=== PATIENT | female | born 1975 | race Caucasian/White ===

== ENCOUNTER 2019-06-04 21:29 | Emergency (ER) | payer SELFPAY ==
[2019-06-04 22:04] VITALS: BP 130/87; PULSE 82; RESP 16; TEMP 36.8; O2SAT 92; BMI 32.3
[2019-06-04 22:28] VITALS: BP 131/81; PULSE 73; RESP 18; TEMP 36.8; O2SAT 96
--- NOTE | 2019-06-04 22:35 | W.ED.EXTPRO ---
HPI - Extremity Problem General: Chief complaint: Extremity Injury, Lower Stated complaint: left leg pain Time Seen by Provider: 06/04/19 22:23 History of Present Illness: HPI Narrative: Patient is a 43-year-old female comes in to the ED with left knee left hip pain. Patient states that she was at her house tonight and twisted her left leg while turning and thought she heard a pop. She says the pain now is in the left hip and left knee. She rates the pain at 1010 and his trouble walking on knee. Denies any Fever, chest pain, shortness of breath, abdominal pain, dysuria, hematuria, bowel symptoms. Review of Systems General: Reports: 10 or more systems reviewed and unremarkable except in HPI and below PFSH ED PFSH: Statuses (acute, chronic, etc) shown below reflect problem list status as previously entered and may not be historically accurate Social History Smoking and tobacco status: current every day smoker Physical Exam Const: COMMON NORMALS: oriented x3 HENMT: COMMON NORMALS: normocephalic HEAD & SCALP: normocephalic MOUTH: oral and palatal mucosa normal THROAT: posterior oropharynx normal and uvula midline Neck/C-Spine: COMMON NORMALS: supple GENERAL: Yes normal visual inspection Resp: COMMON NORMALS: normal respiratory effort, no retractions, no use of accessory muscles and clear to auscultation bilaterally AUSCULTATION: clear to auscultation bilaterally Cardio: COMMON NORMALS: regular rate, regular rhythm, S1 normal heart sound, S2 normal heart sound, no gallops, no clicks, no murmurs and peripheral pulses 2+ throughout RATE: regular rate RHYTHM: regular rhythm HEART SOUNDS: S1 normal and S2 normal PERIPHERAL PULSES: pulses 2+ throughout GI: COMMON NORMALS: normal to inspection, nondistended, normoactive bowel sounds, soft to palpation, non-tender and no masses PALPATION: Yes soft : COMMON NORMALS: Yes no CVA tenderness BLADDER/KIDNEY EXAM: Yes no CVA tenderness Back/Pelvis: COMMON NORMALS: no CVA tenderness Extremity: LEFT LOWER EXTREMITY: Yes hip joint Left hip: Yes inspection (normal, no erythema, echymossis or swelling.), Yes palpation (tender upon palp of lateral side of hip joint), Yes ROM (limited due to pain.) and Yes neurovascular exam (intact) and Yes knee joint Left knee: Yes inspection (normal and no swelling.), Yes palpation (tender on lateral and medial side.), Yes ROM (limited due to pain) and Yes neurovascular exam (intact) Neuro: COMMON NORMALS: oriented x3 and moves all extremities SENSORY EXAM: Yes extremities (intact) Course ED course: I discussed using IM Toradol to help with left leg pain and patient stated she had taken it before that she said it worked and would like to get Toradol injection today. The nurse went in to give patient the IM Toradol and she refused it. Vital Signs: Vital signs: Vital Signs Temperature 98.2 F 06/05/19 00:01 Pulse Rate 102 H 06/05/19 00:01 Respiratory Rate 18 06/05/19 00:01 Blood Pressure 148/92 06/05/19 00:01 Pulse Oximetry 96 06/05/19 00:01 MDM - Extremity (Nontraumatic) Lab Data: Attestation: I reviewed the patient's lab results. Labs: Lab Results 06/04/19 Range/Units 22:10 Urine Color Straw (Yellow) Urine Appearance Clear (CLEAR) Urine pH 7 (5-7) Ur Specific Gravit y 1.005 (1.005-1.030) Urine Protein Neg (Negative) Urine Glucose (UA) Norm (Normal) Urine Ketones Negative (Negative) Urine Occult Blood 2+ H (Negative) Urine Nitrate Positive H (Negative) Urine Bilirubin Neg (NEGATIVE) Urine Urobilinogen Norm (Negative) mg/dL Ur Leukocyte Ashly ase Negative (Negative) Urine RBC 5-10 H (0-2) /hpf Urine WBC 5-10 H (0-5) /hpf Ur Squamous Epith Cells 0-4 H (0-5) Urine Bacteria 3+ H (NONE) Imaging Data^: Xray Ortho: Attestation: I personally reviewed and interpreted this imaging study as follows: My impression: Knee x-ray and left hip x-ray performed. No acute fracture seen. Pending final radiologist report. Discharge Plan Discharge Patient Disposition: Home, Self-Care Clinical Impression: Leg pain, left UTI (urinary tract infection) Qualifiers: Urinary tract infection type: acute cystitis Hematuria presence: with hematuria Qualified Code(s): N30.01 - Acute cystitis with hematuria Condition: Stable Prescriptions: New Bactrim DS 800-160 mg tablet 1 tab PO DAILY 7 Days Qty: 7 RF: 0 naproxen 375 mg tablet 375 mg PO BID PRN (Reason: pain) Qty: 30 RF: 0 No Action No Known Home Medications RF: 0 Discharge Orders: Discharge Order (Routine); Ordered 06/04/19 Ordered By: Joo Dhillon Referrals: [facility] [Other] Discharge Diet: Regular Discharge Activity: Increase activity as tolerated Patient Instructions: Urinary Tract Infection in Women (ED) Activity Restrictions/Additional Instructions: Follow-up with your PCP at your scheduled appointment on . Take full course of antibiotic as prescribed for UTI. Drink plenty of fluids. Take naproxen for leg pain is also rest and ice leg to help with symptoms. Discharge Date/Time: 06/04/19 23:42 Coding Level of Care Code ED School Speech Language Pathologist for Yadi Amador
--- NOTE | 2019-06-04 22:36 | XR_ITS ---
WS: [id number] KNEE LEFT TECHNIQUE: 2 views of the left knee CLINICAL INFORMATION: pain COMPARISON: None. FINDINGS: Left knee is normal in appearance. No evidence of acute fracture dislocation. No significant effusion . Patella is normal. Benign soft tissue calcification. XR/XR knee LT 1-2V [id number] IMPRESSION: Normal left knee.
--- NOTE | 2019-06-04 22:36 | XR_ITS ---
WS: [id number] HIP WITH PELVIS LEFT TECHNIQUE: 3 views of the left hip with pelvis CLINICAL INFORMATION: pain COMPARISON: None. FINDINGS: Both hips are normal in appearance. No acute fractures. Normal pubic rami. Pelvic phleboliths. XR/XR hip LT 2-3V wo/w pel* [id number] IMPRESSION: Normal left hip
[2019-06-04 23:01] LABS: Add Urine Microscopic? YES; Bilirubin Urine Neg (NEGATIVE); Blood Urine 2+ (Negative); Glucose Urine UA Norm (Normal); Ketones Urine Negative (Negative); Leukocyte Esterase Urine Negative (Negative); Nitrate Urine Positive (Negative); Protein Urine Neg (Negative); Specific Gravity, Urine 1.005 (1.005-1.030); Urine Appearance Clear (CLEAR); Urine Color Straw (Yellow); Urobilinogen Urine Norm (Negative); pH Urine 7 (5-7)
[2019-06-04 23:07] LABS: Add Urine Culture? Yes; Bacteria Urine 3+; Squamous Epithelial Cell Urine 0-4 (0-5)
[2019-06-04 23:43] VITALS: BP 139/82; PULSE 98; RESP 16; TEMP 36.7; O2SAT 95
[2019-06-05 00:01] VITALS: BP 148/92; PULSE 102; RESP 18; TEMP 36.8; O2SAT 96
== END 2019-06-04 23:42 | disposition home or self-care (01) ==
PROVIDERS: Emergency Medicine; Emergency Provider Physician Assistant
DX: M25.562 Pain in left knee (principal); M25.552 Pain in left hip; N30.01 Acute cystitis with hematuria; F17.200 Nicotine dependence, unspecified, uncomplicated
CPT/HCPCS: 73501; 73502; 73560; 81001; 87077; 87086; 87186; 99281; 99283

== ENCOUNTER 2019-10-03 18:48 | Emergency (ER) | payer MEDICAID, SELFPAY ==
[2019-10-03 18:55] VITALS: BP 135/81; PULSE 106; RESP 16; TEMP 36.5; O2SAT 95; BMI 32.3
--- NOTE | 2019-10-03 19:04 | W.ED.WOUNDLC ---
HPI - Wound/Laceration General: Chief Complaint: Wound/Laceration Stated Complaint: R HAND LAC Time Seen by Provider: 10/03/19 19:04 History of Present Illness: HPI narrative: Patient is a 43-year-old female comes to the ED with a laceration on right palm. Injury occurred just prior to arrival. Patient states she was peeling potatoes and she excellently cut her right palm. After injury patient cleaned wound with hydrogen peroxide and came to the ED for reevaluation. Patient is unsure of last tetanus shot. Associated symptoms: Denies chills, fever(s), nausea or vomiting Review of Systems Const: Denies: fever(s), chills or fatigue Eyes: Denies: change in vision or eye discomfort ENMT: Denies: throat pain, odynophagia, nasal discharge or nasal congestion Card: Denies: chest pain, palpitations, edema, swelling of feet/ankles, dyspnea on exertion or orthopnea Resp: Denies: dyspnea, productive cough or non-productive cough GI: Denies: abdominal pain, nausea, vomiting, diarrhea, constipation or hematochezia : Denies: flank pain, dysuria or hematuria Musc: Denies: neck pain, back pain or extremity swelling Skin/Breast: Reports: new lesions (Laceration on right palm.); Denies: rash Neuro: Denies: headache(s), numbness in extremities or weakness in extremities PFS ED PFSH: Social History Smoking and tobacco status: current some day smoker Current gender identity: Female Physical Exam Const: COMMON NORMALS: no acute distress, patient oriented x3 and alert GENERAL APPEARANCE: cooperative and comfortable HENMT: COMMON NORMALS: normocephalic HEAD & SCALP: normocephalic MOUTH: Normal oral and palatal mucosa present THROAT: posterior oropharynx normal and uvula midline Neck/C-Spine: COMMON NORMALS: supple GENERAL: Yes normal visual inspection Resp: COMMON NORMALS: normal respiratory effort, No retractions, No use of accessory muscles and clear to auscultation bilaterally AUSCULTATION: clear to auscultation bilaterally Cardio: COMMON NORMALS: regular rate, regular rhythm, S1 normal heart sound present, S2 normal heart sound present, No gallops present (Cardio), No clicks present (Cardio), No murmurs present (Cardio) and Peripheral pulses 2+ throughout RATE: regular rate RHYTHM: regular rhythm HEART SOUNDS: S1 normal heart sound present and S2 normal heart sound present PERIPHERAL PULSES: Peripheral pulses 2+ throughout GI: COMMON NORMALS: Normal to inspection, nondistended, normoactive bowel sounds present, Soft to palpation, non-tender and no masses PALPATION: Yes Soft to palpation : COMMON NORMALS: Yes no CVA tenderness BLADDER/KIDNEY EXAM: Yes no CVA tenderness Back/Pelvis: COMMON NORMALS: no CVA tenderness Extremity: RIGHT UPPER EXTREMITY: Yes hand & digits Right hand and digits: Yes inspection (Small superficial 1 cm laceration on palm. Not actively bleeding. Some tenderness when touched.) Neuro: COMMON NORMALS: patient oriented x3 and moves all extremities SENSORIUM/ORIENTATION: Yes alert Skin: GENERAL SKIN EXAM: dry skin TRAUMA: laceration (Details of hand laceration in the extremity section of physical exam.) Procedures Laceration Laceration 1: Site: hand Side (If applicable): right Size (cm): 1 Description: linear and clean Depth: simple, single layer Pre-repair: irrigated extensively (normal saline and cleaned with alcohol wipe.) Skin layer closed with: other (dermabond) Technique: other (dermabond) Course Vital Signs: Vital signs: Vital Signs Temperature 97.7 F 10/03/19 18:55 Pulse Rate 94 10/03/19 19:28 Respiratory Rate 16 10/03/19 19:28 Blood Pressure 130/89 10/03/19 19:28 Pulse Oximetry 96 10/03/19 19:28 MDM - Wound/Laceration MDM Narrative: Medical decision making narrative: Patient is a 43-year-old female comes to the ED with small 1 cm superficial linear laceration on the right palm. Wound was irrigated extensively with normal saline and cleaned with alcohol wipe. Laceration was then closed using Dermabond and bandage was placed over laceration. Patient was given an updated tetanus shot and a dose of cephalexin while here in the ED. Patient was given a prescription for cephalexin and told to follow-up with her PCP in 7 to 10 days for reevaluation. I told patient about signs of infection to look for and to re-bandage and clean laceration site daily after the first 24 hours. Patient understood and agreed with plan. Discharge Plan Discharge Patient Disposition: Home, Self-Care Clinical Impression: Laceration Condition: Stable Prescriptions: New cephalexin 500 mg capsule 500 mg PO BID 5 Days Qty: 10 RF: 0 No Action aspirin [Adult Low Dose Aspirin] 81 mg tablet,delayed release (DR/EC) 81 mg PO DAILY RF: 0 gabapentin [Neurontin] 100 mg capsule 100 mg PO TID MDD 1200 Qty: 90 RF: 0 folic acid 1 mg tablet 1 mg PO DAILY Qty: 30 RF: 2 Cerefolin 6-5-50-1 mg tablet 1 tab PO BID Qty: 60 RF: 2 ergocalciferol (vitamin D2) [Drisdol] 1,250 mcg (50,000 unit) capsule 1,250 mcg PO .weekly Qty: 4 RF: 2 naproxen 375 mg tablet 375 mg PO BID PRN (Reason: pain) Qty: 30 RF: 0 Discharge Orders: Discharge Order (Routine); Ordered 10/03/19 Ordered By: Joo Dhillon Discharge Diet: Regular Discharge Activity: Limit activity as instructed Patient Instructions: Laceration (ED) Activity Restrictions/Additional Instructions: For the next 24 hours keep laceration site dry. After that you can re-bandage and clean daily. Take full course of antibiotic as prescribed. Schedule follow-up appointment with your PCP in 7 to 10 days for reevaluation. Watch for signs of infection such as increased tenderness, redness, warmth and drainage around laceration site. If you notice any of the signs you can return to the ED for reevaluation. Coding Level of Care Code ED Motorcycle Engine Assembler for Yadi Fwstone Exam Comprehensive
--- NOTE | 2019-10-03 19:05 | PC.NURSE ---
During triage patient had pressure dressing to right hand, no bleeding noted at this time.
[2019-10-03 19:28] VITALS: BP 130/89; PULSE 94; RESP 16; O2SAT 96
[2019-10-03] MEDS: cephALEXin 500 mg Capsule PO (19:35)
[2019-10-03] MEDS: tetanus-dipt-pertussis 0.5 mL SDV IM (19:35)
== END 2019-10-03 19:56 | disposition home or self-care (01) ==
PROVIDERS: Emergency Provider Physician Assistant
DX: S61.411A Laceration without foreign body of right hand, initial encounter (principal); W26.0XXA Contact with knife, initial encounter; F17.210 Nicotine dependence, cigarettes, uncomplicated; Z23 Encounter for immunization
CPT/HCPCS: 12001; 12345; 90471; 90715; 99282; 99283

== ENCOUNTER → 2020-01-28 08:29 | Outpatient (BNVA) | payer MEDICAID, SELFPAY | PROVIDERS: Visit Provider Counselor Mental Health | DX: F43.12 Post-traumatic stress disorder, chronic (principal); F41.1 Generalized anxiety disorder | CPT/HCPCS: 90832 ==

== ENCOUNTER → 2020-02-04 15:00 | Outpatient (BNVA) | payer MEDICAID, SELFPAY | PROVIDERS: Visit Provider Counselor Mental Health | DX: F41.1 Generalized anxiety disorder (principal); F43.12 Post-traumatic stress disorder, chronic | CPT/HCPCS: 90834 ==

== ENCOUNTER → 2020-03-11 08:02 | Outpatient (BNVA) | payer MEDICAID, SELFPAY | PROVIDERS: Visit Provider Counselor Mental Health | DX: F43.12 Post-traumatic stress disorder, chronic (principal); F41.1 Generalized anxiety disorder | CPT/HCPCS: 90834 ==

== ENCOUNTER → 2020-03-17 08:29 | Outpatient (BNVA) | payer MEDICAID, SELFPAY | PROVIDERS: Visit Provider Counselor Mental Health | DX: F43.12 Post-traumatic stress disorder, chronic (principal); F41.1 Generalized anxiety disorder | CPT/HCPCS: 90832 ==

== ENCOUNTER → 2020-03-24 07:58 | Outpatient (BNVA) | payer MEDICAID, SELFPAY | PROVIDERS: Visit Provider Counselor Mental Health | DX: F43.12 Post-traumatic stress disorder, chronic (principal); F41.1 Generalized anxiety disorder | CPT/HCPCS: 90834 ==

== ENCOUNTER → 2020-04-08 08:51 | Outpatient (BNVA) | payer MEDICAID, SELFPAY | PROVIDERS: Visit Provider Counselor Mental Health | DX: F43.12 Post-traumatic stress disorder, chronic (principal) | CPT/HCPCS: 90834 ==

== ENCOUNTER → 2020-04-14 08:34 | Outpatient (BNVA) | payer MEDICAID, SELFPAY | PROVIDERS: Visit Provider Counselor Mental Health | DX: F43.12 Post-traumatic stress disorder, chronic (principal); F41.1 Generalized anxiety disorder | CPT/HCPCS: 90834 ==

== ENCOUNTER → 2020-05-13 11:12 | Outpatient (BNVA) | payer OTHER, SELFPAY | PROVIDERS: Visit Provider Psychiatry & Neurology Psychiatry | DX: F41.1 Generalized anxiety disorder (principal) | CPT/HCPCS: 80061; 83036 ==

== ENCOUNTER → 2020-05-15 11:10 | Outpatient (BNVA) | payer MEDICAID, SELFPAY | PROVIDERS: Visit Provider Family Medicine | DX: J44.9 Chronic obstructive pulmonary disease, unspecified (principal); I10 Essential (primary) hypertension; Z13.6 Encounter for screening for cardiovascular disorders | CPT/HCPCS: 80053; 80061; 82043; 85025 ==

== ENCOUNTER → 2020-05-18 09:07 | Outpatient (BNVA) | payer MEDICAID, SELFPAY | PROVIDERS: Visit Provider Counselor Mental Health | DX: F43.12 Post-traumatic stress disorder, chronic (principal); F33.1 Major depressive disorder, recurrent, moderate | CPT/HCPCS: 90834 ==

== ENCOUNTER → 2020-05-25 09:26 | Outpatient (BNVA) | payer MEDICAID, SELFPAY ==
[2020-05-19 15:05] VITALS: BP 108/74; BMI 34.1
== END ==
PROVIDERS: Visit Provider Counselor Mental Health
DX: F43.12 Post-traumatic stress disorder, chronic (principal); F33.1 Major depressive disorder, recurrent, moderate; F41.1 Generalized anxiety disorder
CPT/HCPCS: 90834

== ENCOUNTER → 2020-06-02 08:30 | Outpatient (BNVA) | payer MEDICAID, SELFPAY ==
[2020-05-19 15:05] VITALS: BP 108/74; BMI 34.1
== END ==
PROVIDERS: Visit Provider Counselor Mental Health
DX: F43.12 Post-traumatic stress disorder, chronic (principal); F33.1 Major depressive disorder, recurrent, moderate
CPT/HCPCS: 90834

== ENCOUNTER → 2020-06-09 07:55 | Outpatient (BNVA) | payer MEDICAID, SELFPAY ==
[2020-05-19 15:05] VITALS: BP 108/74; BMI 34.1
== END ==
PROVIDERS: Visit Provider Counselor Mental Health
DX: F43.12 Post-traumatic stress disorder, chronic (principal); F33.1 Major depressive disorder, recurrent, moderate; F41.1 Generalized anxiety disorder
CPT/HCPCS: 90834

== ENCOUNTER → 2020-06-16 08:19 | Outpatient (BNVA) | payer MEDICAID, SELFPAY ==
[2020-05-19 15:05] VITALS: BP 108/74; BMI 34.1
== END ==
PROVIDERS: Visit Provider Counselor Mental Health
DX: F43.12 Post-traumatic stress disorder, chronic (principal)
CPT/HCPCS: 90834

== ENCOUNTER → 2020-06-26 08:57 | Outpatient (BNVA) | payer MEDICAID, SELFPAY ==
[2020-05-19 15:05] VITALS: BP 108/74; BMI 34.1
== END ==
PROVIDERS: Visit Provider Counselor Mental Health
DX: F43.12 Post-traumatic stress disorder, chronic (principal)
CPT/HCPCS: 90834

== ENCOUNTER → 2020-06-30 08:06 | Outpatient (BNVA) | payer MEDICAID, SELFPAY ==
[2020-05-19 15:05] VITALS: BP 108/74; BMI 34.1
== END ==
PROVIDERS: Visit Provider Counselor Mental Health
DX: F43.12 Post-traumatic stress disorder, chronic (principal); F41.1 Generalized anxiety disorder; F33.1 Major depressive disorder, recurrent, moderate; F10.11 Alcohol abuse, in remission
CPT/HCPCS: 90834

== ENCOUNTER → 2020-07-07 15:46 | Outpatient (BNVA) | payer MEDICAID, SELFPAY ==
[2020-05-19 15:05] VITALS: BP 108/74; BMI 34.1
== END ==
PROVIDERS: Visit Provider Counselor Mental Health
DX: F43.12 Post-traumatic stress disorder, chronic (principal); F41.1 Generalized anxiety disorder; F33.1 Major depressive disorder, recurrent, moderate; F10.11 Alcohol abuse, in remission
CPT/HCPCS: 90834

== ENCOUNTER → 2020-07-22 14:35 | Outpatient (BNVA) | payer MEDICAID, SELFPAY ==
[2020-05-19 15:05] VITALS: BP 108/74; BMI 34.1
== END ==
PROVIDERS: Visit Provider Counselor Mental Health
DX: F43.12 Post-traumatic stress disorder, chronic (principal); F41.1 Generalized anxiety disorder; F33.1 Major depressive disorder, recurrent, moderate; F10.11 Alcohol abuse, in remission
CPT/HCPCS: 90834

== ENCOUNTER → 2020-08-06 13:34 | Outpatient (BNVA) | payer MEDICAID, SELFPAY ==
[2020-05-19 15:05] VITALS: BP 108/74; BMI 34.1
== END ==
PROVIDERS: Visit Provider Counselor Mental Health
DX: F43.12 Post-traumatic stress disorder, chronic (principal); F41.1 Generalized anxiety disorder; F33.1 Major depressive disorder, recurrent, moderate; F10.11 Alcohol abuse, in remission
CPT/HCPCS: 90834

== ENCOUNTER → 2020-08-17 13:39 | Outpatient (BNVA) | payer MEDICAID, SELFPAY ==
[2020-05-19 15:05] VITALS: BP 108/74; BMI 34.1
== END ==
PROVIDERS: Visit Provider Counselor Mental Health
DX: F43.12 Post-traumatic stress disorder, chronic (principal); F41.1 Generalized anxiety disorder; F33.1 Major depressive disorder, recurrent, moderate
CPT/HCPCS: 90834

== ENCOUNTER → 2020-08-31 12:45 | Outpatient (BNVA) | payer MEDICAID, SELFPAY ==
[2020-05-19 15:05] VITALS: BP 108/74; BMI 34.1
== END ==
PROVIDERS: Visit Provider Psychiatry & Neurology Psychiatry
DX: F32.9 Major depressive disorder, single episode, unspecified (principal); F41.9 Anxiety disorder, unspecified
CPT/HCPCS: 99214

== ENCOUNTER → 2020-09-03 07:36 | Outpatient (BNVA) | payer MEDICAID, SELFPAY ==
[2020-05-19 15:05] VITALS: BP 108/74; BMI 34.1
== END ==
PROVIDERS: Visit Provider Counselor Mental Health
DX: F43.12 Post-traumatic stress disorder, chronic (principal); F41.1 Generalized anxiety disorder; F33.1 Major depressive disorder, recurrent, moderate; F10.11 Alcohol abuse, in remission
CPT/HCPCS: 90834

== ENCOUNTER → 2020-09-16 07:59 | Outpatient (BNVA) | payer MEDICAID, SELFPAY ==
[2020-05-19 15:05] VITALS: BP 108/74; BMI 34.1
== END ==
PROVIDERS: Visit Provider Counselor Mental Health
DX: F43.12 Post-traumatic stress disorder, chronic (principal); F41.1 Generalized anxiety disorder; F33.1 Major depressive disorder, recurrent, moderate; F10.11 Alcohol abuse, in remission
CPT/HCPCS: 90834

== ENCOUNTER → 2020-09-23 09:34 | Outpatient (BNVA) | payer MEDICAID, SELFPAY ==
[2020-05-19 15:05] VITALS: BP 108/74; BMI 34.1
== END ==
PROVIDERS: Visit Provider Counselor Mental Health
DX: F43.12 Post-traumatic stress disorder, chronic (principal); F41.1 Generalized anxiety disorder; F33.1 Major depressive disorder, recurrent, moderate; F10.11 Alcohol abuse, in remission; F32.9 Major depressive disorder, single episode, unspecified
CPT/HCPCS: 90834

== ENCOUNTER → 2020-10-08 08:33 | Outpatient (BNVA) | payer MEDICAID, SELFPAY ==
[2020-05-19 15:05] VITALS: BP 108/74; BMI 34.1
== END ==
PROVIDERS: Visit Provider Counselor Mental Health
DX: F43.12 Post-traumatic stress disorder, chronic (principal); F41.1 Generalized anxiety disorder; F33.1 Major depressive disorder, recurrent, moderate
CPT/HCPCS: 90834

== ENCOUNTER → 2020-10-29 14:03 | Outpatient (BNVA) | payer MEDICAID, SELFPAY ==
[2020-05-19 15:05] VITALS: BP 108/74; BMI 34.1
== END ==
PROVIDERS: Visit Provider Psychiatry & Neurology Psychiatry
DX: F32.9 Major depressive disorder, single episode, unspecified (principal); F41.9 Anxiety disorder, unspecified
CPT/HCPCS: 99214

== ENCOUNTER → 2020-11-13 07:54 | Outpatient (BNVA) | payer MEDICAID, SELFPAY ==
[2020-05-19 15:05] VITALS: BP 108/74; BMI 34.1
== END ==
PROVIDERS: Visit Provider Counselor Mental Health
DX: F43.12 Post-traumatic stress disorder, chronic (principal); F41.1 Generalized anxiety disorder; F33.1 Major depressive disorder, recurrent, moderate; F10.11 Alcohol abuse, in remission
CPT/HCPCS: 90834

== ENCOUNTER → 2020-11-20 07:52 | Outpatient (BNVA) | payer MEDICAID, SELFPAY ==
[2020-05-19 15:05] VITALS: BP 108/74; BMI 34.1
== END ==
PROVIDERS: PCP Family Medicine; Visit Provider Counselor Mental Health
DX: F43.12 Post-traumatic stress disorder, chronic (principal); F41.1 Generalized anxiety disorder; F33.1 Major depressive disorder, recurrent, moderate; F10.11 Alcohol abuse, in remission
CPT/HCPCS: 90834

== ENCOUNTER → 2020-12-01 07:32 | Outpatient (BNVA) | payer MEDICAID, SELFPAY ==
[2020-05-19 15:05] VITALS: BP 108/74; BMI 34.1
== END ==
PROVIDERS: PCP Family Medicine; Visit Provider Counselor Mental Health
DX: F32.9 Major depressive disorder, single episode, unspecified (principal); F43.12 Post-traumatic stress disorder, chronic
CPT/HCPCS: 90834

== ENCOUNTER → 2020-12-14 08:12 | Outpatient (BNVA) | payer MEDICAID, SELFPAY ==
[2020-05-19 15:05] VITALS: BP 108/74; BMI 34.1
== END ==
PROVIDERS: PCP Family Medicine; Visit Provider Counselor Mental Health
DX: F43.12 Post-traumatic stress disorder, chronic (principal); F41.9 Anxiety disorder, unspecified; F33.1 Major depressive disorder, recurrent, moderate
CPT/HCPCS: 90834

== ENCOUNTER → 2020-12-25 07:40 | Outpatient (BNVA) | payer MEDICAID, SELFPAY ==
[2020-05-19 15:05] VITALS: BP 108/74; BMI 34.1
== END ==
PROVIDERS: PCP Family Medicine; Visit Provider Counselor Mental Health
DX: F43.12 Post-traumatic stress disorder, chronic (principal); F33.1 Major depressive disorder, recurrent, moderate; F41.1 Generalized anxiety disorder
CPT/HCPCS: 90834

== ENCOUNTER → 2021-01-05 15:16 | Outpatient (BNVA) | payer MEDICAID, SELFPAY ==
[2020-05-19 15:05] VITALS: BP 108/74; BMI 34.1
== END ==
PROVIDERS: Visit Provider Psychiatry & Neurology Psychiatry
DX: F41.9 Anxiety disorder, unspecified (principal); F32.9 Major depressive disorder, single episode, unspecified; Z72.820 Sleep deprivation
CPT/HCPCS: 99214

== ENCOUNTER → 2021-01-07 08:28 | Outpatient (BNVA) | payer MEDICAID, SELFPAY ==
[2020-05-19 15:05] VITALS: BP 108/74; BMI 34.1
== END ==
PROVIDERS: Visit Provider Counselor Mental Health
DX: F43.12 Post-traumatic stress disorder, chronic (principal); F33.1 Major depressive disorder, recurrent, moderate
CPT/HCPCS: 90834

== ENCOUNTER → 2021-01-18 08:32 | Outpatient (BNVA) | payer MEDICAID, SELFPAY ==
[2020-05-19 15:05] VITALS: BP 108/74; BMI 34.1
== END ==
PROVIDERS: Visit Provider Counselor Mental Health
DX: F33.1 Major depressive disorder, recurrent, moderate (principal); F41.1 Generalized anxiety disorder; F43.12 Post-traumatic stress disorder, chronic
CPT/HCPCS: 90834

== ENCOUNTER 2021-01-22 12:41 | Outpatient (CLI) | payer MEDICAID, SELFPAY ==
[2020-05-19 15:05] VITALS: BP 108/74; BMI 34.1
--- NOTE | 2021-01-22 13:30 | MM_ITS ---
WS: [id number] BILATERAL DIGITAL SCREENING MAMMOGRAPHY WITH CAD CLINICAL INFORMATION: mammogram screening HISTORY: Screening mammogram. Left breast pain at the areola. Discharge from left nipple. Inverted ni pples. Red lump near the nipple. COMPARISON: February 05, 2016. TECHNIQUE: Bilateral CC and MLO views. FINDINGS: Scattered fibroglandular densities bilaterally. Bilateral punctate and lucent centered calcifications . Coarse calcifications. Palpable marker left areola. Increased density deep to the areola measuring 1.5 CM. Recommend further evaluation with left breast diagnostic mammography and ultrasound. Associat ed trabecular thickening about the areola appears increased from previous. Right breast is unremarkable. MM/[place] [id number] IMPRESSION: BI-RADS: 0-Incomplete: Need additional imaging evaluation FOLLOW UP: Need Additional Imaging RECOMMEND LEFT BREAST DIAGNOSTIC MAMMOGRAPHY AND ULTRASOUND.
== END 2021-01-22 12:42 | disposition home or self-care (01) ==
LOC: RADSHAW 12:44
PROVIDERS: PCP Family Medicine; Visit Provider Family Medicine
DX: Z12.31 Encounter for screening mammogram for malignant neoplasm of breast (principal)
CPT/HCPCS: 77067

== ENCOUNTER → 2021-02-02 10:13 | Outpatient (BNVA) | payer MEDICAID, SELFPAY ==
[2020-05-19 15:05] VITALS: BP 108/74; BMI 34.1
== END ==
PROVIDERS: PCP Family Medicine; Visit Provider Counselor Mental Health
DX: F43.12 Post-traumatic stress disorder, chronic (principal); F32.9 Major depressive disorder, single episode, unspecified; F41.1 Generalized anxiety disorder
CPT/HCPCS: 90834

== ENCOUNTER → 2021-02-17 13:30 | Outpatient (BNVA) | payer MEDICAID, SELFPAY ==
[2020-05-19 15:05] VITALS: BP 108/74; BMI 34.1
== END ==
PROVIDERS: PCP Family Medicine; Visit Provider Counselor Mental Health
DX: F32.9 Major depressive disorder, single episode, unspecified (principal); F41.9 Anxiety disorder, unspecified; F43.12 Post-traumatic stress disorder, chronic
CPT/HCPCS: 90834

== ENCOUNTER 2021-03-08 14:53 | Outpatient (CLI) | payer MEDICAID, SELFPAY ==
[2020-05-19 15:05] VITALS: BP 108/74; BMI 34.1
--- NOTE | 2021-03-08 14:30 | MM_ITS ---
WS: [id number] LEFT DIGITAL MAMMOGRAPHY WITH CAD CLINICAL INFORMATION: pain in left breast COMPARISON: January 22, 2021 TECHNIQUE: 2 views of the left breast were obtained. FINDINGS: Scattered fibroglandular densities of the left breast. Stable punctate and lucent centered calcificat ions. Increased density at the areola measuring 1.5 cm is stable in appearance. Associated trabecular thickening. Ultrasound left breast is pending. ULTRASOUND BREAST LEFT TECHNIQUE: Ultrasound left breast focused area of concern. CLINICAL INFORMATION: pain in left breast FINDINGS: Ultrasound left breast at the areola at the 9:00 position 1 cm from the nipple. Associated skin thick ening compatible with cellulitis/mastitis. Subcutaneous edema with soft tissue thickening. Small hypo echoic fluid collection measuring 5.4 x 4.9 mm consistent with a small abscess. No drainable fluid co llections. Recommend continued surveillance and antibiotic treatment. Recommend follow-up to [facility] on. MM/[place] [id number] IMPRESSION: BI-RADS: 3-Probably Benign FOLLOW UP: See Report Recommend follow-up left breast infection to resolution. Recommend left breast ultrasound follow-up after treatment in 4-6 weeks.
--- NOTE | 2021-03-08 15:00 | US_ITS ---
WS: [id number] LEFT DIGITAL MAMMOGRAPHY WITH CAD CLINICAL INFORMATION: pain in left breast COMPARISON: January 22, 2021 TECHNIQUE: 2 views of the left breast were obtained. FINDINGS: Scattered fibroglandular densities of the left breast. Stable punctate and lucent centered calcificat ions. Increased density at the areola measuring 1.5 cm is stable in appearance. Associated trabecular thickening. Ultrasound left breast is pending. ULTRASOUND BREAST LEFT TECHNIQUE: Ultrasound left breast focused area of concern. CLINICAL INFORMATION: pain in left breast FINDINGS: Ultrasound left breast at the areola at the 9:00 position 1 cm from the nipple. Associated skin thick ening compatible with cellulitis/mastitis. Subcutaneous edema with soft tissue thickening. Small hypo echoic fluid collection measuring 5.4 x 4.9 mm consistent with a small abscess. No drainable fluid co llections. Recommend continued surveillance and antibiotic treatment. Recommend follow-up to [facility] on. US/US breast LT limited* [id number] IMPRESSION: BI-RADS: 3-Probably Benign FOLLOW UP: See Report Recommend follow-up left breast infection to resolution. Recommend left breast ultrasound follow-up after treatment in 4-6 weeks.
== END 2021-03-08 14:54 | disposition home or self-care (01) ==
LOC: RADSHAW 14:56
PROVIDERS: PCP Family Medicine; Visit Provider Family Medicine
DX: N64.4 Mastodynia (principal)
CPT/HCPCS: 76642; 77065

== ENCOUNTER → 2021-03-17 08:08 | Outpatient (BNVA) | payer MEDICAID, SELFPAY ==
[2020-05-19 15:05] VITALS: BP 108/74; BMI 34.1
== END ==
PROVIDERS: PCP Family Medicine; Visit Provider Counselor Mental Health
DX: F41.9 Anxiety disorder, unspecified (principal); F43.12 Post-traumatic stress disorder, chronic
CPT/HCPCS: 90832

== ENCOUNTER → 2021-04-09 12:46 | Outpatient (BNVA) | payer MEDICAID, SELFPAY ==
[2020-05-19 15:05] VITALS: BP 108/74; BMI 34.1
== END ==
PROVIDERS: PCP Family Medicine; Visit Provider Counselor Mental Health
DX: F33.9 Major depressive disorder, recurrent, unspecified (principal); F43.12 Post-traumatic stress disorder, chronic; F41.1 Generalized anxiety disorder
CPT/HCPCS: 90834

== ENCOUNTER → 2021-05-12 07:49 | Outpatient (BNVA) | payer MEDICAID, SELFPAY ==
[2020-05-19 15:05] VITALS: BP 108/74; BMI 34.1
== END ==
PROVIDERS: PCP Family Medicine; Visit Provider Counselor Mental Health
DX: F32.9 Major depressive disorder, single episode, unspecified (principal); F43.12 Post-traumatic stress disorder, chronic; F41.1 Generalized anxiety disorder
CPT/HCPCS: 90834

== ENCOUNTER → 2021-05-28 07:57 | Outpatient (BNVA) | payer MEDICAID, SELFPAY ==
[2020-05-19 15:05] VITALS: BP 108/74; BMI 34.1
== END ==
PROVIDERS: PCP Family Medicine; Visit Provider Counselor Mental Health
DX: F43.12 Post-traumatic stress disorder, chronic (principal); F41.1 Generalized anxiety disorder
CPT/HCPCS: 90834

== ENCOUNTER → 2021-06-08 08:16 | Outpatient (BNVA) | payer MEDICAID, SELFPAY ==
[2020-05-19 15:05] VITALS: BP 108/74; BMI 34.1
== END ==
PROVIDERS: PCP Family Medicine; Visit Provider Psychiatry & Neurology Psychiatry
DX: F41.9 Anxiety disorder, unspecified (principal); F32.9 Major depressive disorder, single episode, unspecified; Z72.820 Sleep deprivation
CPT/HCPCS: 99214

== ENCOUNTER 2021-06-14 15:12 | Outpatient (CLI) | payer MEDICAID, SELFPAY ==
[2020-05-19 15:05] VITALS: BP 108/74; BMI 34.1
--- NOTE | 2021-06-14 15:14 | XRR_ITS ---
PROCEDURE INFORMATION: Exam: XR Left Knee Exam date and time: 06/14/2021 3:14 PM Age: 45 years old Clinical indication: Pain; Knee; Left; Additional info: Acute pain of left knee TECHNIQUE: Imaging protocol: XR Left knee. Views: 3 views. COMPARISON: CR XR knee LT 1-2V [id number] 06/04/2019 10:43 PM FINDINGS: Bones/joints: Osseous structures are intact. Negative for fracture. Joint spaces are preserved. Soft tissues: Normal. XR/XR knee LT 3V* [id number] IMPRESSION: No acute findings.
== END 2021-06-14 15:13 | disposition home or self-care (01) ==
PROVIDERS: PCP Family Medicine; Visit Provider Family Medicine
DX: M25.562 Pain in left knee (principal)
CPT/HCPCS: 73562

== ENCOUNTER → 2021-06-17 08:21 | Outpatient (BNVA) | payer MEDICAID, SELFPAY ==
[2020-05-19 15:05] VITALS: BP 108/74; BMI 34.1
== END ==
PROVIDERS: PCP Family Medicine; Visit Provider Counselor Mental Health
DX: F41.1 Generalized anxiety disorder (principal); F43.12 Post-traumatic stress disorder, chronic
CPT/HCPCS: 90834

== ENCOUNTER → 2021-07-01 15:02 | Outpatient (BNVA) | payer MEDICAID, SELFPAY ==
[2020-05-19 15:05] VITALS: BP 108/74; BMI 34.1
== END ==
PROVIDERS: PCP Family Medicine; Visit Provider Counselor Mental Health
DX: F41.1 Generalized anxiety disorder (principal); F43.12 Post-traumatic stress disorder, chronic
CPT/HCPCS: 90834

== ENCOUNTER 2021-07-21 14:05 | Outpatient (CLI) | payer MEDICAID, SELFPAY ==
[2020-05-19 15:05] VITALS: BP 108/74; BMI 34.1
--- NOTE | 2021-07-21 15:06 | US_ITS ---
WS: [id number] ULTRASOUND BREAST LEFT TECHNIQUE: Ultrasound left breast focused area of concern. CLINICAL INFORMATION: breast abscess resolution COMPARISON: Ultrasound March 08, 2021 FINDINGS: Previously described LEFT breast abscess has resolved. No residual abscess or fluid collection. Angelita l subareolar tissue. Dense hypoechoic nodule with calcification near the scar may represent fibrotic tissue related to drainage procedure but nonspecific. This measures 7.1 x 4.4 mm at the 9:00 position . Small amount of surrounding vascularity. Recommend 6 month follow-up to confirm stability. US/US breast LT limited* [id number] IMPRESSION: BI-RADS 3 probably benign FOLLOW UP: Recommend 6 month follow-up LEFT breast diagnostic mammography and u ltrasound with attention to the 9:00 hypoechoic nodule
== END 2021-07-21 14:06 | disposition home or self-care (01) ==
LOC: RAD 14:07
PROVIDERS: PCP Family Medicine; Visit Provider Family Medicine
DX: N61.1 Abscess of the breast and nipple (principal); N63.25 Unspecified lump in the left breast, overlapping quadrants
CPT/HCPCS: 76642

== ENCOUNTER → 2021-08-02 12:32 | Outpatient (BNVA) | payer MEDICAID, SELFPAY ==
[2020-05-19 15:05] VITALS: BP 108/74; BMI 34.1
== END ==
PROVIDERS: PCP Family Medicine; Visit Provider Counselor Mental Health
DX: F41.1 Generalized anxiety disorder (principal); F43.12 Post-traumatic stress disorder, chronic
CPT/HCPCS: 90834

== ENCOUNTER 2021-10-01 11:01 | Outpatient (CLI) | payer OTHER, SELFPAY ==
[2020-05-19 15:05] VITALS: BP 108/74; BMI 34.1
--- NOTE | 2021-10-01 11:21 | XR_ITS ---
WS: [id number] KNEE RIGHT TECHNIQUE: 2 views of the right knee CLINICAL INFORMATION: ?MULTILEVEL DDD/ARTHRALGIA COMPARISON: None. FINDINGS: Normal anatomic alignment. No acute fractures. Normal patella. Normal tibial plateau and distal femor al condyles. Normal soft tissues. Mild degenerative arthritis. XR/XR knee RT 1-2V [id number] IMPRESSION: Mild tricompartmental arthritis. No acute fractures. Kellgren-James Classification: grade 1 (doubtful): doubtful joint space narr owing and possible osteophytic lipping
--- NOTE | 2021-10-01 11:21 | XR_ITS ---
WS: [id number] LUMBAR SPINE TECHNIQUE: 3 views of the lumbar spine CLINICAL INFORMATION: ARTHRALGIA/NEUROPATHY/?DDD COMPARISON: None. FINDINGS: 6 [id number] lumbar vertebral bodies. Mild lumbar curve convex RIGHT. Disc space heights are wel l preserved. No compression fractures. Mild facet arthropathy L5-S1. Mild bony foraminal narrowing L5 -S1. Mild disc space narrowing L4-L5 and L5-S1. XR/XR lumbar spine 2-3V* [id number] IMPRESSION: 1. Mild disc space narrowing L4-L5 and L5-S1. 2. 6 nonrib-bearing lumbar vertebral bodies. 3. Mild facet arthropathy L5-S1 with mild bony foraminal narrowing.
--- NOTE | 2021-10-01 11:21 | XR_ITS ---
WS: [id number] CERVICAL SPINE TECHNIQUE: 3 views of the cervical spine CLINICAL INFORMATION: ? MULTILEVEL DDD/ARTHRALGIA COMPARISON: None. FINDINGS: Straightening of the normal cervical lordosis. Normal C1-C2 articulation. Moderate facet arthropathy mid thoracic spine. Mild disc space narrowing C6-C7. Normal prevertebral soft tissues. XR/XR cervical spine 3V* [id number] IMPRESSION: Straightening of the normal cervical lordosis with mild spondylitic changes.
== END 2021-10-01 11:02 | disposition home or self-care (01) ==
LOC: RAD 11:08
PROVIDERS: PCP Family Medicine
DX: Z02.71 Encounter for disability determination (principal)
CPT/HCPCS: 72040; 72100; 73560

== ENCOUNTER → 2021-10-26 12:27 | Outpatient (BNVA) | payer MEDICAID, OTHER, SELFPAY ==
[2020-05-19 15:05] VITALS: BP 108/74; BMI 34.1
== END ==
PROVIDERS: PCP Family Medicine; Visit Provider Nurse Practitioner Psychiatric/Mental Health
DX: F41.1 Generalized anxiety disorder (principal); F43.12 Post-traumatic stress disorder, chronic
CPT/HCPCS: 99214

== ENCOUNTER → 2022-01-04 15:45 | Outpatient (BNVA) | payer MEDICAID, SELFPAY ==
[2020-05-19 15:05] VITALS: BP 108/74; BMI 34.1
== END ==
PROVIDERS: PCP Family Medicine; Visit Provider Family Medicine
DX: R07.9 Chest pain, unspecified (principal); R53.83 Other fatigue
CPT/HCPCS: 84443

== ENCOUNTER → 2022-03-10 14:27 | Outpatient (BNVA) | payer MEDICAID, SELFPAY ==
[2020-05-19 15:05] VITALS: BP 108/74; BMI 34.1
== END ==
PROVIDERS: PCP Family Medicine; Visit Provider Internal Medicine Cardiovascular Disease
DX: R07.89 Other chest pain (principal); I10 Essential (primary) hypertension; R06.02 Shortness of breath; E78.5 Hyperlipidemia, unspecified; E66.01 Morbid (severe) obesity due to excess calories; Z68.41 Body mass index [BMI] 40.0-44.9, adult; Z91.030 Bee allergy status; F17.210 Nicotine dependence, cigarettes, uncomplicated
CPT/HCPCS: 93005; 99204

== ENCOUNTER 2022-07-26 | Outpatient (CLI) | payer MEDICAID, SELFPAY ==
[2020-05-19 15:05] VITALS: BP 108/74; BMI 34.1
== END 2022-07-26 23:00 | disposition home or self-care (01) ==
LOC: RAD 09-05 12:15
PROVIDERS: PCP Family Medicine; Visit Provider Nurse Practitioner Family
DX: I10 Essential (primary) hypertension (principal); R07.89 Other chest pain; F17.210 Nicotine dependence, cigarettes, uncomplicated; Z79.82 Long term (current) use of aspirin
CPT/HCPCS: 99214

== ENCOUNTER → 2022-11-22 12:14 | Outpatient (BNVA) | payer MEDICAID, SELFPAY ==
[2020-05-19 15:05] VITALS: BP 108/74; BMI 34.1
== END ==
PROVIDERS: PCP Family Medicine; Visit Provider Family Medicine
DX: R10.13 Epigastric pain (principal)
CPT/HCPCS: 80053; 83690; 85025; 86003; 86008

== ENCOUNTER 2023-01-23 08:42 | Emergency (ER) | payer OTHER, MEDICAID, SELFPAY ==
[2020-05-19 15:05] VITALS: BP 108/74; BMI 34.1
[2023-01-23 08:51] VITALS: BP 127/85; PULSE 77; RESP 16; O2SAT 95; BMI 33.3
--- NOTE | 2023-01-23 08:53 | XR_ITS ---
WS: [id number] PORTABLE CHEST HISTORY: dyspnea/cough COMPARISON: 01/09/2017 Lungs are well expanded. Granuloma mid LEFT lung. No pneumonia. No pleural effusion or pneumothorax. Cardiac size: Normal. Mediastinum/Aorta: Normal mediastinum. No osseous abnormality seen. IMPRESSION: Unremarkable portable chest.
--- NOTE | 2023-01-23 08:56 | ED_ITS ---
HPI - COVID General: Chief Complaint: COVID symptoms Stated Complaint: Covid symptoms/exposure Time Seen by Provider: 01/23/23 08:49 Source: patient Mode of arrival: ambulatory Triage information: Has fever, cough or shortness of breath . Exposure to COVID + person last 14 days History of Present Illness: 47-year-old female presents emergency room complaining of myalgias fever diarrhea headache sinus congestion the last several days. Has known exposure at work to a coworker with COVID. Cough is nonproductive. No chest pain. No anosmia. MD complaint: reported COVID exposure Prior covid testing: no COVID 19 common symptoms: positive fever(s), chills, cough, non-productive cough, throat pain, nasal congestion, nausea, vomiting and diarrhea; negative dyspnea COVID 19 other sytmptoms: negative chest pain Onset (ago): day(s) Severity: mild Pertinent comorbid conditions: obesity Treatment prior to arrival: none COVID Results: SARS-CoV-2 (PCR) Pending 01/23/23 09:09 Coronavirus Type 229E (PCR) Pending 01/23/23 09:09 Review of Systems Const: Reports: fever(s) and chills ENMT: Reports: throat pain and nasal congestion Card: Denies: chest pain, edema, dyspnea on exertion or orthopnea Resp: Reports: non-productive cough; Denies: dyspnea GI: Reports: nausea, vomiting and diarrhea; Denies: abdominal pain : Denies: flank pain, dysuria, urinary frequency or urinary urgency Skin/Breast: Denies: rash or pruritus PFSH ED PFSH: Medical History Breast abscess Cervical cancer Colon polyps Her last colonoscopy was 8 years ago. COPD (chronic obstructive pulmonary disease) MDD (major depressive disorder) Problems related to lack of adequate sleep Problems related to lack of adequate sleep Psychiatric care Surgical History H/O tubal ligation H/O: hysterectomy S/P peripheral artery angioplasty with stent placement Family History Grandmother CAD (coronary artery disease) Hypertension Cancer Diabetes Dementia Grandfather Congestive heart failure (CHF) Anesthesia complication CAD (coronary artery disease) Mother Hyperlipidemia CAD (coronary artery disease) Dementia Lung disease Suicide Brother Lung disease Suicide Denies family history of Clotting disorder Chronic kidney disease (CKD) Bleeding disorder Stroke Social History Smoking and tobacco status: current every day smoker cigarettes Packs smoked per day: 0.25 [ Other cigarette details: is down from 2 ppd] Quit status (tobacco): has tried quititng Alcohol intake: former Former alcohol use details: QUIT 3 MONTHS AGO 05/15/20 Substance/Drug Use: never Marital status: Current gender identity: Female Physical Exam Const: GENERAL APPEARANCE: cooperative and comfortable ORIENTATION/CONSCIOUSNESS: Yes awake, Yes oriented to person, Yes oriented to place and Yes oriented to time HENMT: COMMON NORMALS: normocephalic, atraumatic and hearing grossly normal bilaterally HEAD & SCALP: normocephalic and atraumatic Resp: COMMON NORMALS: normal respiratory effort, No retractions, No use of accessory muscles and clear to auscultation bilaterally AUSCULTATION: clear to auscultation bilaterally Cardio: COMMON NORMALS: regular rate, regular rhythm and No murmurs present (Cardio) RATE: regular rate RHYTHM: regular rhythm GI: COMMON NORMALS: Soft to palpation and No hepatosplenomegaly present AUSCULTATION: Yes normoactive bowel sounds PALPATION: Yes Soft to palpation, No Tenderness to palpation present (GI), No Guarding due to palpation present (GI) and Yes No hepatosplenomegaly present Extremity: COMMON NORMALS: normal to inspection, capillary refill normal, no clubbing, cyanosis or edema, no calf tenderness and no pedal edema Neuro: SENSORIUM/ORIENTATION: Yes oriented to person, Yes oriented to place and Yes oriented to time Skin: COMMON NORMALS: no rashes or lesions noted GENERAL SKIN EXAM: no rashes or lesions noted Course Vital Signs: Vital signs: Vital Signs Temperature 98.0 F 01/23/23 09:09 Pulse Rate 71 01/23/23 10:48 Respiratory Rate 16 01/23/23 10:48 Blood Pressure 125/77 01/23/23 10:48 Pulse Oximetry 99 01/23/23 10:48 Oxygen Delivery Me thod Room Air 01/23/23 08:59 MDM - COVID Medical Decision Making Chest x-ray unremarkable COVID swab is pending. No acute infiltrates. Vital signs are stable. Will discharge patient home contact with results of the COVID when they become available. She should use standard precautions for COVID until we contact her with the results that she does not wish to have Paxlovid if she is positive. Medical Records I reviewed the patient's medical records. Lab Data I reviewed the patient's lab results. SARS-CoV-2 (PCR) Pending 01/23/23 09:09 Coronavirus Type 229E (PCR) Pending 01/23/23 09:09 All radiology interpretation(s) finalized by discharge Discharge Plan Discharge Patient Disposition: Home Clinical Impression: Upper respiratory infection, viral, Suspected COVID-19 virus infection Condition: Stable Prescriptions: No Action aspirin [Adult Low Dose Aspirin] 81 mg tablet,delayed release (DR/EC) 81 mg PO QAM epinephrine 0.3 mg/0.3 mL auto-injector 0.3 mg IM Q10M PRN (Reason: anaphylaxis) Qty: 2 0RF Rx Instructions: for 2 doses melatonin 5 mg tablet 5 mg PO BEDTIME PRN (Reason: Sleep) nitroglycerin 0.4 mg tablet, sublingual 0.4 mg sublingual Q5M PRN (Reason: chest pain) 30 Days Qty: 30 3RF Rx Instructions: until response; do not exceed 3 doses per episode ondansetron 8 mg tablet,disintegrating 8 mg PO Q12H PRN (Reason: nausea and vomiting) Qty: 14 0RF venlafaxine 75 mg capsule,extended release 24hr 75 mg PO QAM 30 Days Qty: 30 2RF naproxen [Naprosyn] 500 mg tablet 500 mg PO BID PRN (Reason: pain) Qty: 60 0RF albuterol sulfate [ProAir HFA] 90 mcg/actuation HFA aerosol inhaler 2 puff inhalation Q6H PRN (Reason: shortness of breath or wheezing) Qty: 8.5 1RF multivitamin Tablet 1 tab PO DAILY Vitamin D3 125 mcg (5,000 unit) Tablet 125 mcg PO Q7D Rx Instructions: on fri pantoprazole 40 mg tablet,delayed release (DR/EC) 40 mg PO BID lisinopril 10 mg tablet 10 mg PO QAM folic acid 1 mg tablet 1 mg PO QAM escitalopram oxalate 20 mg tablet 20 mg PO QAM Symbicort 160-4.5 mcg/actuation HFA aerosol inhaler 2 puff inhalation BID Discharge Orders: Discharge ED (Routine); Ordered 01/23/23 Ordered By: Ugo Whitehead Referrals: Jessica Padilla DO [Primary Care Provider] - Discharge Diet: Usual diet Discharge Activity: Increase activity as tolerated Patient Instructions: COVID-19 (Coronavirus Disease 2019) (ED), Opioid Safety, Pain Management Coding Level of Care Code ED Chop Saw Operator for Yadi Amador
[2023-01-23 08:57] VITALS: O2SAT 96
[2023-01-23 08:59] VITALS: BP 127/85; PULSE 76; RESP 16; O2SAT 96
[2023-01-23 09:09] VITALS: TEMP 36.7
[2023-01-23 10:48] VITALS: BP 125/77; PULSE 71; RESP 16; O2SAT 99
[2023-01-23 11:10] LABS: Adenovirus Not Detected (NOT DETECT); Chlamydia Pneumoniae Not Detected (NOT DETECT); Coronavirus 229E,HKU1,NL63,OC4 Not Detected (NOT DETECT); Human Metapneumovirus Not Detected (NOT DETECT); Human Rhinovirus/Enterovirus Not Detected (NOT DETECT); Influenza A Not Detected (NOT DETECT); Influenza A H1 Not Detected (NOT DETECT); Influenza A H1-2009 Not Detected (NOT DETECT); Influenza A H3 Not Detected (NOT DETECT); Influenza B Not Detected (NOT DETECT); Mycoplasma Pneumoniae Not Detected (NOT DETECT); Parainfluenza Virus Type 1 Not Detected (NOT DETECT); Parainfluenza Virus Type 2 Not Detected (NOT DETECT); Parainfluenza Virus Type 3 Not Detected (NOT DETECT); Parainfluenza Virus Type 4 Not Detected (NOT DETECT); Respiratory Syncytial Virus A Not Detected (NOT DETECT); Respiratory Syncytial Virus B Not Detected (NOT DETECT); SARS-COV-2 Not Detected (NOT DETECT)
== END 2023-01-23 10:49 | disposition home or self-care (01) ==
PROVIDERS: Emergency Provider Family Medicine; PCP Family Medicine
DX: J06.9 Acute upper respiratory infection, unspecified (principal); Z20.822 Contact with and (suspected) exposure to COVID-19; Z79.82 Long term (current) use of aspirin; F17.210 Nicotine dependence, cigarettes, uncomplicated; Z85.41 Personal history of malignant neoplasm of cervix uteri; J44.9 Chronic obstructive pulmonary disease, unspecified
CPT/HCPCS: 71045; 87635; 99284

== ENCOUNTER 2023-03-03 16:10 | Emergency (ER) | payer OTHER, SELFPAY ==
[2020-05-19 15:05] VITALS: BP 108/74; BMI 34.1
[2023-03-03 16:36] VITALS: PULSE 97; RESP 15; TEMP 36.6; O2SAT 99; BMI 36.3
--- NOTE | 2023-03-03 17:13 | XRR_ITS ---
PROCEDURE INFORMATION: Exam: XR Left Ankle Exam date and time: 03/03/2023 7:04 PM Age: 47 years old Clinical indication: Injury or trauma; Work related; Injury date: 03/03/2023; Patient HX: Lt ankle pain post fall TECHNIQUE: Imaging protocol: Radiologic exam of the left ankle. Views: 3 or more views. COMPARISON: No relevant prior studies available. FINDINGS: Bones/joints: No acute fracture or dislocation. Anterior capsular calcification/ossification of the tibiotalar joint which may reflect sequela of remote trauma. Soft tissues: Unremarkable. XR/XR ankle LT min 3V* [id number] IMPRESSION: No acute osseous abnormality
--- NOTE | 2023-03-03 20:33 | XRR_ITS ---
PROCEDURE INFORMATION: Exam: XR Left Knee Exam date and time: 03/03/2023 8:54 PM Age: 47 years old Clinical indication: Injury or trauma; Blunt trauma; Left; Patient HX: Fall landing on knee. C/O pain. ; Additional info: Fall L knee pain TECHNIQUE: Imaging protocol: Radiologic exam of the left knee. Views: 3 views. COMPARISON: CR (LOW EXM, ) 03/03/2023 7:04 PM FINDINGS: Bones/joints: No acute fracture or other acute osseous abnormality. No significant joint narrowing. No joint dislocation. No joint effusion noted. Soft tissues: Incidental note made of a lateral 1.4 cm soft tissue/subcutaneous calcification. XR/XR knee LT 3V* [id number] IMPRESSION: No acute fracture demonstrated.
--- NOTE | 2023-03-04 05:52 | W.ED.EXTPRO ---
HPI - Extremity Problem General: Chief complaint: Extremity Injury, Lower Stated complaint: hurt ankle and knee Time Seen by Provider: 03/03/23 19:58 History of Present Illness: 47 year old female who fell while working off of a couple of stairs. She injured her left knee and left ankle. She felt a pop in her ankle and had swelling. She believes she may have felt a pop in her knee as well. She's having trouble bearing weight on that side. No numbness or tingling. Associated symptoms: Deny fever(s) Review of Systems Const: Denies: fever(s) Resp: Denies: dyspnea GI: Denies: vomiting Musc: Denies: neck pain Neuro: Denies: headache(s) PFSH ED PFSH: Medical History Breast abscess Cervical cancer Colon polyps Her last colonoscopy was 8 years ago. COPD (chronic obstructive pulmonary disease) MDD (major depressive disorder) Problems related to lack of adequate sleep Problems related to lack of adequate sleep Psychiatric care Surgical History H/O tubal ligation H/O: hysterectomy S/P peripheral artery angioplasty with stent placement Family History Grandmother CAD (coronary artery disease) Hypertension Cancer Diabetes Dementia Grandfather Congestive heart failure (CHF) Anesthesia complication CAD (coronary artery disease) Mother Hyperlipidemia CAD (coronary artery disease) Dementia Lung disease Suicide Brother Lung disease Suicide Denies family history of Clotting disorder Chronic kidney disease (CKD) Bleeding disorder Stroke Social History Smoking and tobacco/nicotine status: current every day tobacco/nicotine user cigarettes Packs smoked per day: 0.25 [ Other cigarette details: is down from 2 ppd] Quit status (tobacco/nicotine): has tried quititng Alcohol intake: former Former alcohol use details: QUIT 3 MONTHS AGO 05/15/20 Substance/Drug Use: never Marital status: Current gender identity: Female Physical Exam Const: COMMON NORMALS: no acute distress and healthy appearing GENERAL APPEARANCE: cooperative HENMT: COMMON NORMALS: normocephalic and atraumatic HEAD & SCALP: normocephalic and atraumatic Eye: COMMON NORMALS: Equal, round and reactive pupils present and EOMs intact bilaterally PUPIL: Yes Equal, round and reactive pupils present Resp: COMMON NORMALS: normal respiratory effort Extremity: NARRATIVE EXTREMITY EXAM: Examination of the left lower extremity reveals mild swelling to the left knee. There is no deformity. There is pain on range of motion. Tenderness to palpation over the patellar facets. Minimal joint line tenderness. Examination of the ankle reveals mild soft tissue swelling. No deformity. Tenderness over the medial and lateral joint lines and malleoli. Ligament testing is guarded. Course Vital Signs: Vital signs: Vital Signs Temperature 97.8 F 03/03/23 16:36 Pulse Rate 97 03/03/23 16:36 Respiratory Rate 15 03/03/23 16:36 Pulse Oximetry 99 03/03/23 16:36 Oxygen Delivery Me thod Room Air 03/03/23 16:36 MDM - Extremity (Nontraumatic) Medical Decision Making X-rays negative for fracture. She'll be placed in a brace for the ankle, dionne wrap for the knee. Crutches. Pain control. outpatient follow up. Work restrictions until follow up. Lab Data Radiology Impressions Ankle X-Ray 03/03/23 17:13 IMPRESSION: No acute osseous abnormality Knee X-Ray 03/03/23 20:33 IMPRESSION: No acute fracture demonstrated. All radiology interpretation(s) finalized by discharge Discharge Plan Discharge Patient Disposition: Home Clinical Impression: Ankle sprain and strain, Contusion of knee, left Condition: Stable Prescriptions: New hydrocodone-acetaminophen 5-325 mg tablet 1 tab PO Q8H PRN (Reason: pain) Qty: 7 0RF No Action aspirin [Adult Low Dose Aspirin] 81 mg tablet,delayed release (DR/EC) 81 mg PO QAM epinephrine 0.3 mg/0.3 mL auto-injector 0.3 mg IM Q10M PRN (Reason: anaphylaxis) Qty: 2 0RF Rx Instructions: for 2 doses melatonin 5 mg tablet 5 mg PO BEDTIME PRN (Reason: Sleep) nitroglycerin 0.4 mg tablet, sublingual 0.4 mg sublingual Q5M PRN (Reason: chest pain) 30 Days Qty: 30 3RF Rx Instructions: until response; do not exceed 3 doses per episode ondansetron 8 mg tablet,disintegrating 8 mg PO Q12H PRN (Reason: nausea and vomiting) Qty: 14 0RF omeprazole 40 mg capsule,delayed release(DR/EC) 40 mg PO DAILY Qty: 30 2RF cetirizine [Zyrtec] 10 mg tablet 10 mg PO DAILY Qty: 30 5RF fluticasone propionate [Flonase Allergy Relief] 50 mcg/actuation spray,suspension 2 spray intranasal DAILY Qty: 16 5RF Rx Instructions: administer into each nostril venlafaxine 75 mg capsule,extended release 24hr 75 mg PO QAM 30 Days Qty: 30 2RF naproxen [Naprosyn] 500 mg tablet 500 mg PO BID PRN (Reason: pain) Qty: 60 0RF albuterol sulfate [ProAir HFA] 90 mcg/actuation HFA aerosol inhaler 2 puff inhalation Q6H PRN (Reason: shortness of breath or wheezing) Qty: 8.5 1RF escitalopram oxalate 20 mg tablet 20 mg PO QAM Qty: 90 0RF multivitamin Tablet 1 tab PO DAILY Vitamin D3 125 mcg (5,000 unit) Tablet 125 mcg PO Q7D Rx Instructions: on fri lisinopril 10 mg tablet 10 mg PO QAM folic acid 1 mg tablet 1 mg PO QAM Symbicort 160-4.5 mcg/actuation HFA aerosol inhaler 2 puff inhalation BID Discharge Orders: Discharge ED (Routine); Ordered 03/03/23 Ordered By: Nnamdi Peacock Referrals: Jessica Padilla DO [Primary Care Provider] - 1-3 days Patient Instructions: Ankle Sprain (ED), Knee Pain (ED), Opioid Safety, Pain Management Coding Level of Care Code ED Assistant Spa Manager for Yadi Amador
== END 2023-03-03 22:06 | disposition home or self-care (01) ==
PROVIDERS: Emergency Provider Emergency Medicine; PCP Family Medicine
DX: S93.402A Sprain of unspecified ligament of left ankle, initial encounter (principal); S96.912A Strain of unspecified muscle and tendon at ankle and foot level, left foot, initial encounter; S80.02XA Contusion of left knee, initial encounter; Z79.82 Long term (current) use of aspirin; F17.210 Nicotine dependence, cigarettes, uncomplicated; Z85.41 Personal history of malignant neoplasm of cervix uteri; J44.9 Chronic obstructive pulmonary disease, unspecified; W10.8XXA Fall (on) (from) other stairs and steps, initial encounter; Y99.0 Civilian activity done for income or pay
CPT/HCPCS: 29515; 73562; 73610; 99284

== ENCOUNTER 2023-10-26 06:00 | Outpatient (CLI) | payer OTHER, MEDICAID, SELFPAY ==
[2020-05-19 15:05] VITALS: BP 108/74; BMI 34.1
== END 2023-10-26 06:01 | disposition home or self-care (01) ==
PROVIDERS: PCP Nurse Practitioner Family; Visit Provider Family Medicine
DX: I10 Essential (primary) hypertension (principal)
CPT/HCPCS: 80053; 80061; 82043; 85025

== ENCOUNTER → 2023-11-14 12:05 | Outpatient (BNVA) | payer MEDICAID, SELFPAY ==
[2020-05-19 15:05] VITALS: BP 108/74; BMI 34.1
== END ==
PROVIDERS: PCP Family Medicine; Visit Provider Internal Medicine Cardiovascular Disease
DX: R07.9 Chest pain, unspecified (principal)
CPT/HCPCS: 93005

== ENCOUNTER → 2023-11-20 15:19 | Outpatient (BNVA) | payer MEDICAID, SELFPAY ==
[2020-05-19 15:05] VITALS: BP 108/74; BMI 34.1
== END ==
PROVIDERS: PCP Family Medicine; Visit Provider Specialist
DX: M25.562 Pain in left knee (principal); M17.12 Unilateral primary osteoarthritis, left knee
CPT/HCPCS: 73560; 73565

== ENCOUNTER → 2023-12-07 14:54 | Outpatient (BNVA) | payer MEDICAID, OTHER, SELFPAY ==
[2020-05-19 15:05] VITALS: BP 108/74; BMI 34.1
== END ==
PROVIDERS: PCP Nurse Practitioner Family; Visit Provider Orthopaedic Surgery
DX: M54.9 Dorsalgia, unspecified (principal); M54.41 Lumbago with sciatica, right side; G89.29 Other chronic pain
CPT/HCPCS: 72110

== ENCOUNTER 2023-12-28 09:54 | Day surgery (SDC) | payer OTHER, MEDICAID, SELFPAY ==
[2020-05-19 15:05] VITALS: BP 108/74; BMI 34.1
[2023-12-28] VITALS (11 sets, daily range): BP systolic 95–113; BP diastolic 57–88; PULSE 71–87; RESP 15–18; TEMP 36.1–36.3; O2SAT 92–98
[2023-12-28] MEDS: sodium chloride 0.9% 1,000 ML 30 ML IV (10:32)
--- NOTE | 2023-12-28 10:33 | W.PM.OPSUD ---
Surgery/Procedure H&P Update DATE OF PROCEDURE: December 28, 2023 DATE H&P PERFORMED: 12/21/23 H&P UPDATE INFORMATION: I have reviewed H&P completed within last 30 days, I have examined patient prior to procedure and No changes to prior documentation PLANNED PROCEDURE: Operation Date: 12/28/23 11:40 Proposed Procedures p excision subcutaneous left posterior neck mass 23353, 61633, R22.1, R10.9(Left) - DO daquan Dewitt Laparoscopic Cholecystectomy(Not Applicable) - Pritesh Keys DO
[2023-12-28] MEDS: vancomycin 1,500 MG/300 ML PIGGYBACK 200 MG IV (10:36)
[2023-12-28] MEDS: scopolamine 1.5 Patch 1 PATCH TRANSDERMA (10:39)
--- NOTE | 2023-12-28 11:10 | ANES.PREANE2 ---
Pre-Anesthetic Assessment Height/Weight: Height 4 ft 11 in Weight 198 lb Temp Pulse Resp BP Pulse Ox O2 Del Method 97 F L 85 16 113/88 95 Room Air 12/28/23 10:17 12/28/23 10:17 12/28/23 10:17 12/28/23 10:17 12/28/23 10:17 12/28/23 10:17 Operation Date: 12/28/23 11:40 Proposed Procedures p excision subcutaneous left posterior neck mass 22914, 10135, R22.1, R10.9(Left) - DO daquan Dewitt Laparoscopic Cholecystectomy(Not Applicable) - Pritesh Keys DO Last intake: Intake Last Liquid Date 12/27/23 Last Liquid Time 23:30 Last Solid Date 12/27/23 Last Solid Time 18:00 Social Tobacco and No alcohol Exam alert, oriented x 3, clear to auscultation bilaterally and regular rate & rhythm Airway Submandibular: within normal limits Cervical ROM: within normal limits Mallampati: Class III Comments: Comments: Multiple missing teeth you did Anesthetic Plan ASA status: 3 Other: No prior issues with anesthesia n.p.o. since midnight COPD, controlled with inhalers Hypertension on lisinopril GERD on pantoprazole METs greater than 4 Very poor dentition Plan for GETA Medications/Allergies Home Medications Medication Instructions Recorded Confirmed Last Taken Type aspirin 81 mg tablet,delayed 81 mg PO QAM 09/09/19 12/28/23 12/25/23 History release (Adult Low Dose Aspirin) epinephrine 0.3 mg/0.3 mL 0.3 mg (0.3 mL) IM Q10M PRN 07/02/20 12/28/23 Unknown Rx injection, auto-injector anaphylaxis #2 ea albuterol sulfate 90 mcg/actuation 2 puff inhalation Q6H PRN 11/27/20 12/28/23 12/27/23 Rx aerosol inhaler (ProAir HFA) shortness of breath or wheezing #8.5 grams melatonin 5 mg tablet 5 mg PO BEDTIME PRN Sleep 03/10/22 12/28/23 12/26/23 History nitroglycerin 0.4 mg sublingual 0.4 mg sublingual Q5M PRN chest 03/10/22 12/28/23 12/24/23 Rx tablet pain 30 days #30 tabs budesonide-formoterol HFA 160 2 puff inhalation BID 01/23/23 12/28/23 12/26/23 History mcg-4.5 mcg/actuation aerosol inhaler (Symbicort) cholecalciferol (vitamin D3) 125 125 mcg PO Q7D 01/23/23 12/28/23 Unknown History mcg (5,000 unit) tablet (Vitamin D3) folic acid 1 mg tablet 1 mg PO QAM 01/23/23 12/28/23 12/24/23 History lisinopril 10 mg tablet 10 mg PO QAM 01/23/23 12/28/23 12/27/23 History multivitamin 1 tab PO DAILY 01/23/23 12/28/23 Unknown History cetirizine 10 mg tablet (Zyrtec) 10 mg PO DAILY #30 tabs 12/05/23 12/28/23 12/27/23 Rx fluticasone propionate 50 2 spray intranasal DAILY #16 grams 12/05/23 12/28/23 12/27/23 Rx mcg/actuation nasal spray,suspension (Flonase Allergy Relief) pantoprazole 40 mg tablet,delayed 40 mg PO BID 6 weeks #84 tabs 12/21/23 12/28/23 12/27/23 Rx release (Protonix) omeprazole 40 mg capsule,delayed 40 mg PO DAILY 12/27/23 12/28/23 12/27/23 History release Allergies Allergy/AdvReac Type Severity Reaction Status Date / Time alcohol Allergy Severe ALGY-Anaphy Verified 12/27/23 12:14 laxis Bleach (Sodium Hypochlorite) Allergy Intermediate ALGY-Difficulty Verified 12/27/23 12:14 Breathing iodine Allergy Intermediate ALGY-Hives Verified 12/28/23 10:12 Penicillins Allergy Intermediate ALGY-Hives Verified 12/27/23 12:14 sertraline AdvReac Mild makes me Verified 12/27/23 12:14 go a little bit weird shellfish derived AdvReac Mild unknown Verified 12/27/23 12:14 venom-honey bee AdvReac Mild unknown Verified 12/27/23 12:14 bactrim Allergy Severe hives Uncoded 12/27/23 12:14 Current Medications Generic Name Dose Route Start Last Admin Trade Name Freq PRN Reason Stop Dose Admin Sodium Chloride 1,000 mls @ 30 mls/hr 12/28/23 10:00 12/28/23 10:32 Sodium Chloride 0.9% IV 12/29/23 09:59 30 mls/hr .Q24H JOSEFINA Administration PFSH Anesthesia Medical History Encounter for colonoscopy due to history of adenomatous colonic polyps Breast abscess Problems related to lack of adequate sleep MDD (major depressive disorder) Cervical cancer Colon polyps Her last colonoscopy was 8 years ago. COPD (chronic obstructive pulmonary disease) Problems related to lack of adequate sleep Surgical History S/P peripheral artery angioplasty with stent placement H/O: hysterectomy H/O tubal ligation Family History Grandmother CAD (coronary artery disease) Hypertension Cancer Diabetes Dementia Grandfather Congestive heart failure (CHF) Anesthesia complication CAD (coronary artery disease) Mother Hyperlipidemia CAD (coronary artery disease) Dementia Lung disease Suicide Brother Lung disease Suicide Denies family history of Clotting disorder Chronic kidney disease (CKD) Bleeding disorder Stroke Social History Smoking and tobacco/nicotine status: unknown if used tobacco/nicotine Quit status (tobacco/nicotine): has tried quititng Alcohol intake: former Former alcohol use details: QUIT 3 MONTHS AGO 05/15/20 Substance/Drug Use: never Marital status: Current gender identity: Female Data Anesthesia Cardiac Studies: No Data to Display
[2023-12-28] MEDS: lidocaine-epi 2% PF 1:200,000 20 mL SDV XX (11:46)
[2023-12-28] MEDS: HYDROcodone-acetaminophen 7.5-325 mg Tablet 1 TAB PO (13:54)
--- NOTE | 2023-12-28 14:08 | ANE.PACU2 ---
Inpatient post-anesthesia follow up: Airway intact: Yes Vital signs: Temperature 97.4 F Pulse Rate 71 Respiratory Rate 16 Blood Pressure 105/59 Pulse Oximetry 93 Oxygen Delivery Me thod Room Air Oxygen Flow Rate 6 Fraction of Inspir ed Oxygen Hydration adequate: Yes Nausea and vomiting: No Pain level: 1 Mental status: Baseline
--- NOTE | 2023-12-28 15:03 | P.OP_ITS ---
Operative Report Date of procedure: December 28, 2023 Pre-op diagnosis: Subcutaneous mass left posterior neck Symptomatic cholelithiasis Post-op diagnosis: same Procedure done: Excision of subcutaneous mass left posterior neck Laparoscopic cholecystectomy Surgeon: Pritesh Keys DO Brief History: This is a very pleasant 48-year-old female who presented to my office with abdominal pain and an enlarging subcutaneous mass over left posterior neck. She had ultrasound proven cholelithiasis. Cholecystectomy and excision of subcutaneous mass left posterior neck were indicated. The risks and benefits were explained and documented Procedure: Surgeon: Dr. Pritesh Keys DO Estimated blood loss: 5 mL Specimens: Gallbladder to pathology Complications: None apparent Description of procedure: Patient was wheeled into the operative room and placed on the OR table in a supine position. Abdomen was inspected prepped and draped in usual sterile fashion. Time-out was performed and all present were in agreement. A 15 blade scalp was used to make a stab incision in the left upper quadrant and intra- abdominal insufflation was achieved using a Veress needle. After localizing the tissue incisions were made and a 5 millimeter trocar was placed into the u mbilicus as well as 2 in the right upper quadrant. A 12 millimeter trocar was placed in the epigastrium. Gallbladder was grasped and elevated. The triangle of Calot was carefully dissected using blunt dissection and electrocautery until the triangle of Calot clearly identified. The cystic duct was clipped proximally and double clipped distally. The duct was then ligated proximally. The cystic artery was doubly clipped and ligated. The gallbladder was then removed from the liver bed using electrocautery. The gallbladder was removed from the abdomen using an Endo-Catch bag through the epigastric incision. The liver bed was inspected and no bleeding was seen. The abdomen was irrigated and suctioned. All ports removed. Skin was washed and dried. Incisions were closed with 4-0 Monocryl in a subcuticular interrupted fashion. Skin glue was applied. Patient tolerated the procedure well. Patient was then placed into the right lateral decubitus position. The posterior neck was inspected prepped and draped in usual sterile fashion. 2% lidocaine with epinephrine was used to anesthetize the skin overlying the subcutaneous mass. A 3.5 cm elliptical excision was performed using a 10 blade scalpel and a transverse fashion. Electrocautery was used dissect down through the dermis. A blue lobulated subcutaneous mass was identified. This was removed intact. Alveolar connecting tissue was transected with blunt dissection and electrocautery. Specimen was passed off. Specimen measured 3.8 x 2.8 x 2.3 cm. Hemostasis was achieved electrocautery. Dermis was approximated with 3-0 Vicryl in a subcuticular interrupted fashion. Skin was closed with 4-0 Monocryl in a subcuticular running fashion. Dermabond was applied. Patient tolerated procedure well.
== END 2023-12-28 14:08 | disposition home or self-care (01) ==
PROVIDERS: PCP Nurse Practitioner Family; Visit Provider Surgery
PROC: (CPT 11404; principal; 2023-12-28 11:40)
PROC: 0FT44ZZ Resection of Gallbladder, Percutaneous Endoscopic Approach (ICD-10-PCS; CPT 47562; 2023-12-28 11:40)
DX: K80.10 Calculus of gallbladder with chronic cholecystitis without obstruction (principal); L72.0 Epidermal cyst; J44.9 Chronic obstructive pulmonary disease, unspecified; I10 Essential (primary) hypertension; Z79.82 Long term (current) use of aspirin; Z85.41 Personal history of malignant neoplasm of cervix uteri; K21.9 Gastro-esophageal reflux disease without esophagitis; Z86.010 Personal history of colon polyps
CPT/HCPCS: 11404; 12032; 47562; 88304; 88307; J2250; J2704; J3010; J3370; J3490; J7030

== ENCOUNTER 2024-01-04 13:47 | Outpatient (CLI) | payer OTHER, MEDICAID, SELFPAY ==
[2020-05-19 15:05] VITALS: BP 108/74; BMI 34.1
--- NOTE | 2024-01-04 15:00 | MM_ITS ---
WS: [id number] BILATERAL 3D TOMOSYNTHESIS DIGITAL DIAGNOSTIC MAMMOGRAPHY WITH CAD CLINICAL INFORMATION: N61.1 - Abscess of the breast and nipple HISTORY: LEFT breast abscess COMPARISON: 2021 TECHNIQUE: Bilateral CC, MLO, and ML views. FINDINGS: Scattered fibroglandular densities bilaterally. Incidental bilateral punctate and lucent centered jaguar cifications. Skin thickening LEFT breast deep to the palpable marker. Ultrasound of this area is pending. RIGHT breast appears unchanged. ULTRASOUND BREAST LEFT TECHNIQUE: Ultrasound left breast focused area of concern. CLINICAL INFORMATION: N61.1 - Abscess of the breast and nipple FINDINGS: Ultrasound LEFT breast area of concern near the areola. Tiny amount of subcutaneous fluid deep to the area of concern measuring approximately 1.2 x 1.2 x 0.3 cm. No evidence of drainable abscess or flui d collection. Patient reports recent treatment with antibiotics with improvement. MM/[place] [id number] IMPRESSION: DENSITY: There are scattered areas of fibroglandular density. BI-RADS: 2 - Benign. FOLLOW UP: 1 Year Follow-up Recommend return to annual screening mammography. If concern regarding increasing fluid collection or LEFT breast skin changes re commend return for additional ultrasound.
--- NOTE | 2024-01-04 15:30 | US_ITS ---
WS: [id number] BILATERAL 3D TOMOSYNTHESIS DIGITAL DIAGNOSTIC MAMMOGRAPHY WITH CAD CLINICAL INFORMATION: N61.1 - Abscess of the breast and nipple HISTORY: LEFT breast abscess COMPARISON: 2021 TECHNIQUE: Bilateral CC, MLO, and ML views. FINDINGS: Scattered fibroglandular densities bilaterally. Incidental bilateral punctate and lucent centered jaguar cifications. Skin thickening LEFT breast deep to the palpable marker. Ultrasound of this area is pending. RIGHT breast appears unchanged. ULTRASOUND BREAST LEFT TECHNIQUE: Ultrasound left breast focused area of concern. CLINICAL INFORMATION: N61.1 - Abscess of the breast and nipple FINDINGS: Ultrasound LEFT breast area of concern near the areola. Tiny amount of subcutaneous fluid deep to the area of concern measuring approximately 1.2 x 1.2 x 0.3 cm. No evidence of drainable abscess or flui d collection. Patient reports recent treatment with antibiotics with improvement. US/US breast LT limited* [id number] IMPRESSION: DENSITY: There are scattered areas of fibroglandular density. BI-RADS: 2 - Benign. FOLLOW UP: 1 Year Follow-up Recommend return to annual screening mammography. If concern regarding increasing fluid collection or LEFT breast skin changes re commend return for additional ultrasound.
== END 2024-01-04 13:48 | disposition home or self-care (01) ==
LOC: RAD 13:47
PROVIDERS: PCP Nurse Practitioner Family; Visit Provider Nurse Practitioner Family
DX: N61.1 Abscess of the breast and nipple (principal); R92.323 Mammographic fibroglandular density, bilateral breasts; R92.1 Mammographic calcification found on diagnostic imaging of breast
CPT/HCPCS: 76642; 77062; G0279

== ENCOUNTER 2024-01-08 13:18 | Outpatient (CLI) | payer OTHER, MEDICAID, SELFPAY ==
[2020-05-19 15:05] VITALS: BP 108/74; BMI 34.1
--- NOTE | 2024-01-08 13:45 | MR_ITS ---
WS: [id number] MRI LUMBAR SPINE WITH AND WITHOUT CONTRAST HISTORY: Severe back pain for several years. COMPARISON: 01/29/2016 TECHNIQUE: Sagittal and axial multisequence imaging is submitted. MultiHance 19 mL. Normal lumbar alignment with no compression fractures or marrow edema. Disc spaces and vertebral body heights are well-preserved. Conus terminates normally at L1. L1-L2: Normal. L2-L3: Normal. L3-L4: Mild annular disc bulging with moderate ligamentum flavum and facet arthritis. Very mild centr al and bilateral subarticular recess and foraminal encroachment. L4-L5: Annular disc bulge with a shallow central disc protrusion. Disc protrusion is smaller in size as compared to 01/29/2016. There is still mild contact on the traversing L5 nerve roots slightly great er on the RIGHT. Moderate facet joint arthritis. Mild foraminal and subarticular recess stenosis. L5-S1: Central disc protrusion. No stenosis. Normal paravertebral soft tissues. No discitis or osteomyelitis. No enhancing mass. Nonenhancing RIGH T renal cyst. MR/MR lumbar spine wo/w con [id number] IMPRESSION: 1. L4-5: Small central disc protrusion has decreased in size since 2016. Facet disease and disc disease resulting in mild bilateral foraminal subarticular re cess encroachment. 2. L3-4: Very mild central, bilateral subarticular recess and foraminal stenos is due to disc and facet disease. 3. L5-S1: Small central disc protrusion. No stenosis. 4. No enhancing masses or discitis or osteomyelitis.
[2024-01-08] MEDS: gadobenate dimeglumine 20 mL vial 19 ML IV (14:22)
== END 2024-01-08 13:19 | disposition home or self-care (01) ==
LOC: RAD 13:18
PROVIDERS: PCP Nurse Practitioner Family; Visit Provider Orthopaedic Surgery
DX: M51.36 Other intervertebral disc degeneration, lumbar region (principal); M47.896 Other spondylosis, lumbar region
CPT/HCPCS: 72158

== ENCOUNTER 2024-02-08 12:18 | Outpatient (RCR) | payer OTHER, MEDICAID, SELFPAY ==
[2020-05-19 15:05] VITALS: BP 108/74; BMI 34.1
== END 2024-02-29 23:59 | disposition home or self-care (01) ==
LOC: SPT 12:18
PROVIDERS: Visit Provider Orthopaedic Surgery
DX: M54.50 Low back pain, unspecified (principal)
CPT/HCPCS: 97161

== ENCOUNTER → 2024-05-16 13:30 | Outpatient (BNVA) | payer MEDICAID, OTHER, SELFPAY ==
[2024-03-22 11:43] VITALS: BP 122/82; BMI 38.9
== END ==
DX: E78.5 Hyperlipidemia, unspecified (principal)
CPT/HCPCS: 80053; 80061

== ENCOUNTER → 2024-10-29 12:16 | Outpatient (BNVA) | payer OTHER, SELFPAY ==
[2024-03-22 11:43] VITALS: BP 122/82; BMI 38.9
== END ==
PROVIDERS: Visit Provider Nurse Practitioner Psychiatric/Mental Health
DX: F41.9 Anxiety disorder, unspecified (principal); F10.11 Alcohol abuse, in remission; F41.1 Generalized anxiety disorder
CPT/HCPCS: 80061; 83036